=== PATIENT | male | born 1960 | race Caucasian/White ===

== ENCOUNTER → 2018-09-09 | Day surgery (SDC) | payer OTHER ==
[~2018-09-09] MED LIST: AMBIEN 5 MG TABL5 M1 PO; LISINOPRIL10 MG PO; TRAMADOL 50 MG50 MG PO; UNICOMPLEX M TA1 TA1 PO; WELLBUTRIN SR150 MG PO
--- NOTE | ~2018-09-09 | PROC ---
[facility] [address] [place] [address] PROCEDURE REPORT Name: ESHA KATE Room: [facility].#: [id number] Admission: 09/09/18 Attend Phys: Steve Carranza DO Discharge: Date of : 58 Report #: [id number] THIS REPORT FOR: //name// For GI report, please see Provation report in Perceptive 7 content. By: [id number] Records Staff [facility] /LOUIE
[2018-09-09 07:59] LABS: HEMATOCRIT 43.9 % (42.0-52.0); HEMOGLOBIN 15.2 gm/dL (14.0-18.0); MCH 33.7 pg (26.0-34.0); MCHC 34.6 g/dL (28.0-37.0); MCV 97.4 fL (80.0-100.0); MPV 9.8 fl. (7.2-11.1); RBC 4.51 mil/uL (4.50-6.00); RDW-CV 13.6 % (10.5-14.5); WBC 11.9 thou/uL (4.0-11.0)
[2018-09-09 08:16] LABS: ALBUMIN 2.7 g/dL (3.4-5.0); CALCIUM 9.1 mg/dL (8.5-10.1); CREATININE 0.9 mg/dL (0.6-1.3); POTASSIUM 4.1 mmol/L (3.5-5.1); TOTAL BILIRUBIN 0.6 mg/dL (<0.1-1.0); TOTAL PROTEIN 9.1 g/dL (6.4-8.2)
--- NOTE | 2018-09-09 12:21 | EKG ---
[place] [address] ELECTROCARDIOGRAM REPORT Name: ESHA KATE Room: [facility]#: [id number] Admission: 09/09/18 Attend Phys: Steve Carranza DO Discharge: Date of : 58 Report #: [id number] THIS REPORT FOR: //name// [facility] Test Date: 2018-09-09 Test Time: 08:02:30 Pat Name: ESHA KATE Department: Room: Gender: M [employer] Supervisor: RAMO : 1960 Requested By: Steve Carranza Order Number: [id number] Shirley MD: Mc Boss Measurements Intervals Fosters Rate: 82 P: 5 UT: 108 QRS: 31 QRSD: 139 T: -11 QT: 401 QTc: 469 Interpretive Statements Sinus rhythm Short UT interval Right bundle branch block Minimal ST elevation, anterior leads Compared to ECG 11/22/2005 18:51:49 Short UT interval now present Right bundle-branch block now present ST (T wave) deviation now present Electronically Signed On 09-09-2018 12:21:39 CDT by Mc Boss [email or web address] <ELECTRONICALLY SIGNED> By: Mc Boss MD, [facility] 09/09/18 1221 [id number] Mc Boss MD, [facility] /EPI
== END | disposition home or self-care (01) ==
LOC: M.SUR 07:39
PROVIDERS: Internal Medicine Gastroenterology
DX: I85.10 Secondary esophageal varices without bleeding (principal); K76.6 Portal hypertension; K31.89 Other diseases of stomach and duodenum; I10 Essential (primary) hypertension; F17.210 Nicotine dependence, cigarettes, uncomplicated; F32.9 Major depressive disorder, single episode, unspecified; Z79.899 Other long term (current) drug therapy; Z98.890 Other specified postprocedural states